=== PATIENT | female | born 1935 | race Caucasian/White ===

== ENCOUNTER 2017-08-12 13:57 | Emergency (ER) | payer OTHER ==
[~2017-08-12] VITALS: Ht 167.6 cm; Wt 56.7 kg
== END 2017-08-12 16:21 | disposition home or self-care (01) ==
LOC: ER 13:57
DX: S90.32XA Contusion of left foot, initial encounter (principal); S50.02XA Contusion of left elbow, initial encounter; S60.222A Contusion of left hand, initial encounter; V49.9XXA Car occupant (driver) (passenger) injured in unspecified traffic accident, initial encounter; Y93.89 Activity, other specified; Y92.488 Other paved roadways as the place of occurrence of the external cause; Y99.8 Other external cause status

== ENCOUNTER 2017-09-01 08:27 | Outpatient (CLI) | payer OTHER | END 2017-09-01 10:43 | disposition home or self-care (01) | LOC: EDSEX 08:27 → SONOGRAMA 08:27 | DX: N45.1 Epididymitis (principal) ==

== ENCOUNTER 2018-01-19 12:02 | Outpatient (CLI) | payer OTHER | END 2018-01-19 13:10 | disposition home or self-care (01) | LOC: SONOGRAMA 12:02 | DX: Z12.31 Encounter for screening mammogram for malignant neoplasm of breast (principal); N61.0 Mastitis without abscess ==

== ENCOUNTER 2019-12-02 10:09 | Outpatient (CLI) | payer OTHER | END 2019-12-02 11:18 | disposition home or self-care (01) | LOC: SONOGRAMA 10:09 | PROVIDERS: ATTEND Urology | DX: N40.1 Benign prostatic hyperplasia with lower urinary tract symptoms (principal) ==

== ENCOUNTER 2021-12-13 12:29 | Emergency (ER) | payer OTHER ==
[~2021-12-13] VITALS: Ht 167.6 cm; Wt 56.2 kg
[2021-12-13] MEDS ORDERED: TOPROL XL50 M1 PO (13:45)
[2021-12-13] MEDS ORDERED: OMEPRAZOLE40 MG PO (13:46)
[2021-12-13] MEDS ORDERED: ALTACE2.5 MG PO (13:47)
[2021-12-13] MEDS ORDERED: ATORVASTATIN CA20 MG PO (13:48)
== END 2021-12-13 14:48 | disposition home or self-care (01) ==
LOC: ER 12:29
DX: S89.91XA Unspecified injury of right lower leg, initial encounter (principal); W18.30XA Fall on same level, unspecified, initial encounter; Y93.9 Activity, unspecified; Y92.410 Unspecified street and highway as the place of occurrence of the external cause; S60.512A Abrasion of left hand, initial encounter; S60.511A Abrasion of right hand, initial encounter

== ENCOUNTER 2025-03-25 10:33 | Outpatient (CLI) | payer OTHER ==
[~2025-03-25 10:33] MED LIST: ALTACE2.5 MG PO; ATORVASTATIN CA20 MG PO; OMEPRAZOLE40 MG PO; TOPROL XL50 M1 PO
== END 2025-03-25 10:34 | disposition home or self-care (01) ==
LOC: RAD 10:33
PROVIDERS: ATTEND Internal Medicine Endocrinology, Diabetes & Metabolism
DX: S22.41XA Multiple fractures of ribs, right side, initial encounter for closed fracture (principal); X58.XXXA Exposure to other specified factors, initial encounter; Y93.9 Activity, unspecified; Y92.9 Unspecified place or not applicable; Y99.9 Unspecified external cause status

== ENCOUNTER → 2025-03-25 15:37 | Outpatient (CLI) | payer OTHER ==
[2025-03-25 12:50] LABS: INR 1.04
[2025-03-25 13:20] LABS: BUN CREA RATIO 15.0 (7.0-25.0); CREATININE SERUM 1.24 mg/dL (0.70-1.30); GFR 55.27; GLUCOSE FASTING 89.0 mg/dL (65-100); OSMOLALITY SERUM 266.0 MOSM/KG (275-295)
== END | disposition home or self-care (01) ==
LOC: LAB 11:50
PROVIDERS: ATTEND Internal Medicine Endocrinology, Diabetes & Metabolism
DX: D68.9 Coagulation defect, unspecified (principal); D56.1 Beta thalassemia; I11.0 Hypertensive heart disease with heart failure

== ENCOUNTER → 2025-04-14 | Outpatient (CLI) | payer OTHER | END | disposition home or self-care (01) | LOC: MRI 06:35 | PROVIDERS: ATTEND Internal Medicine Endocrinology, Diabetes & Metabolism | DX: S06.5X9A Traumatic subdural hemorrhage with loss of consciousness of unspecified duration, initial encounter (principal); S06.5X0A Traumatic subdural hemorrhage without loss of consciousness, initial encounter | CPT/HCPCS: 70553; Q9965 ==